=== PATIENT | male | born 1975 | race Caucasian/White ===

== ENCOUNTER 2024-02-27 09:37 | Inpatient (IN) ==
[2024-02-27] MEDS ORDERED: cefTRIAXone 2 GM ADDV.VIAL 2 GM in NS 0.9% 100 ml BAG 100 ML IV ONE (10:39)
[2024-02-27] MEDS: cefTRIAXone 2 gm/50 mL D5W 2 GM/50 ML BAG IV ONE (11:26)
[2024-02-27 11:38] LABS: ABS Basophils 0.1 10^3/uL (0.0-0.1); ABS Lymphocytes 0.8 10^3/uL (1.0-4.8); ABS Monocytes 0.5 10^3/uL (0.0-1.1); ABS Neutrophils 10.7 10^3/uL (1.5-7.6); Hematocrit 34.5 % (38-53); Hemoglobin 11.8 g/dL (13.2-16.3); Lymphocyte % 6.8 %; Mean Corpuscular Hemoglobin 30.9 pg (27-33); Mean Corpuscular Hgb Conc 34.1 g/dL (31-36); Mean Corpuscular Volume 90.6 fL (80-97); Mean Platelet Volume 9.7 fL (7.5-11.2); Platelet Count 169 10^3/uL (150-450); Red Blood Count 3.81 10^6/uL (4.06-5.63); Red Cell Distribution Width 13.9 % (12-17); White Blood Count 12.1 10^3/uL (3.6-10.2)
[2024-02-27 11:50] LABS: INR 1.14 (0.85-1.14)
[2024-02-27] MEDS: Lactated Ringers 1000 ml BAG 1,000 ML IV ONE (12:11)
[2024-02-27 12:16] LABS: ALT 44 U/L (7-52); Albumin 3.3 g/dL (3.2-5.2); Albumin/Globulin Ratio 1.1 (1-3); Alkaline Phosphatase 98 U/L (35-149); Anion Gap 10 mmol/L (2-16); Blood Urea Nitrogen 38 mg/dL (6-24); C Reactive Protein 400.79 mg/L (<8.01); CO2 Carbon Dioxide 29 mmol/L (22-32); Calcium 8.5 mg/dL (8.6-10.3); Chloride 92 mmol/L (101-111); Creatinine, Serum 2.27 mg/dL (0.67-1.17); Globulin 3.1 g/dL (2-4); Glucose 114 mg/dL (70-100); Sodium 131 mmol/L (135-145); Total Bilirubin 0.8 mg/dL (0.2-1.0); Total Protein 6.4 g/dL (6.4-8.9); eGFR CKD-EPI 34.9 (>60)
[2024-02-27 12:29] LABS: Urine Amorphous Crystals Present /HPF (Absent); Urine Appearance Extra Turbid; Urine Bacteria 1+ /HPF (Absent); Urine Bilirubin Negative (Negative); Urine Blood 3+ (Negative); Urine Glucose Negative (Negative); Urine Ketones Negative (Negative); Urine Nitrite Negative (Negative); Urine Protein 1+ (>=30 mg/dL) (Negative); Urine Red Blood Cell 3+(>10/hpf) /HPF (0-Trace); Urine Specific Gravity 1.014 (1.002-1.030); Urine Squamous Epithelial Cell Present /HPF (Absent); Urine Urobilinogen Negative (Negative); Urine White Blood Cell 2+(11-20/hpf) /HPF (0-Trace); Urine pH 5.5 (5.0-8.0)
[2024-02-27 12:30] LABS: Urine Color Yellow
[2024-02-27] MEDS ORDERED: Magnesium Hydroxide LIQ 30 ML UDC PO PRN (12:57)
[2024-02-27] MEDS ORDERED: Albuterol HFA INHALER 8 gm MDI INH PRN (12:57)
[2024-02-27] MEDS ORDERED: Calcium (OSCAL) 500 mg TAB PO PRN (12:57)
[2024-02-27] MEDS ORDERED: Polyethylene Glycol 3350 BTL 238 GM BTL PO PRN (12:57)
[2024-02-27] MEDS: fentaNYL 100 mcg/2 ml 50 MCG/ML VIAL IV SLOW PU ONE (13:30)
[2024-02-27] MEDS: Enoxaparin 60 MG/0.6 ML SYR SUBCUT SCH (14:14)
[2024-02-27] MEDS: Nystatin SUSPENSION 100,000 UNITS/ML UDC SWISH SWAL SCH (14:14)
[2024-02-27] MEDS: ceFAZolin 2 GM PREMIX 2 GM/50 ML BAG IV SCH (18:08)
[2024-02-27] MEDS: PRAVASTATIN 10 MG PO SCH (21:22)
[2024-02-27] MEDS: DULoxetine DR 60 mg CAP PO SCH (21:22)
[2024-02-27] MEDS: Nystatin TOP POWDER 15 GM BTL TOPICAL SCH (21:23)
[2024-02-28] MEDS: Lactated Ringers 1000 ml BAG 1,000 ML IV ONE (01:24)
[2024-02-28 01:53] LABS: Creatinine, Serum 2.06 mg/dL (0.67-1.17); Potassium 3.4 mmol/L (3.5-5.0); eGFR CKD-EPI 39.2 (>60)
[2024-02-28 02:32] LABS: Hematocrit 34.2 % (38-53); Hemoglobin 11.4 g/dL (13.2-16.3); Mean Corpuscular Hemoglobin 30.2 pg (27-33); Mean Corpuscular Hgb Conc 33.4 g/dL (31-36); Mean Corpuscular Volume 90.5 fL (80-97); Mean Platelet Volume 9.5 fL (7.5-11.2); Platelet Count 142 10^3/uL (150-450); Red Blood Count 3.77 10^6/uL (4.06-5.63); Red Cell Distribution Width 14.2 % (12-17); White Blood Count 12.4 10^3/uL (3.6-10.2)
[2024-02-28 04:02] LABS: ABS Monocytes 0.5 10^3/uL (0.0-1.1); ABS Neutrophils 10.8 10^3/uL (1.5-7.6); Eosinophil % 0.1 %; Lymphocyte % 8.3 %
[2024-02-28] MEDS ORDERED: Potassium Chlor 20 meq TAB.ER PO SCH (09:00)
[2024-02-28] MEDS: TERBINAFINE HCL 250 MG PO SCH (09:22)
[2024-02-28] MEDS: Potassium Chloride LIQUID 20 MEQ/15 ML LIQUID PO ONE (09:25)
[2024-02-28] MEDS: Nicotine PATCH 21 MG/24 HR PATCH TRANSDERM SCH (09:28)
[2024-02-28] MEDS: Lactated Ringers 1000 ml BAG 1,000 ML IV SCH (09:47)
[2024-02-28] MEDS: Potassium Chlor 20 meq TAB.ER PO SCH (14:53)
[2024-02-29 07:26] LABS: Hematocrit 32.6 % (38-53); Hemoglobin 11.2 g/dL (13.2-16.3); Mean Corpuscular Hemoglobin 30.8 pg (27-33); Mean Corpuscular Hgb Conc 34.2 g/dL (31-36); Mean Corpuscular Volume 89.9 fL (80-97); Mean Platelet Volume 9.8 fL (7.5-11.2); Platelet Count 147 10^3/uL (150-450); Red Blood Count 3.63 10^6/uL (4.06-5.63); Red Cell Distribution Width 14.3 % (12-17); White Blood Count 15.2 10^3/uL (3.6-10.2)
[2024-02-29 07:58] LABS: Creatinine, Serum 2.5 mg/dL (0.67-1.17); Potassium 3.4 mmol/L (3.5-5.0); eGFR CKD-EPI 31.1 (>60)
[2024-02-29 08:33] LABS: C Reactive Protein 403.42 mg/L (<8.01)
[2024-02-29 08:59] LABS: ABS Basophils 0.1 10^3/uL (0.0-0.1); ABS Eosinophils 0.1 10^3/uL (0.0-0.5); ABS Lymphocytes 1.2 10^3/uL (1.0-4.8); ABS Monocytes 0.7 10^3/uL (0.0-1.1); ABS Neutrophils 13.1 10^3/uL (1.5-7.6); Eosinophil % 0.7 %; Lymphocyte % 7.8 %
[2024-02-29] MEDS: Potassium Chlor 20 meq TAB.ER PO ONE (10:29)
[2024-02-29] MEDS ORDERED: Vancomycin per Pharmacy 1 EA NOTE FOLLOW UP SCH (12:00)
[2024-02-29] MEDS ORDERED: Vancomycin 1,000 MG in NS 0.9% 250 ml 250 ML IVPB ONE (12:00)
[2024-02-29] MEDS: Furosemide 100 mg/10 ml IV VIAL IV ONE (14:21)
[2024-02-29] MEDS: cefTRIAXone 1 gm/50 mL D5W 1 GM/50 ML BAG IV SCH (14:32)
[2024-02-29] MEDS: Vancomycin 2,000 MG in NS 0.9% 500 ml BAG 500 ML IVPB ONE (15:56)
[2024-03-01 06:41] LABS: Hematocrit 33.4 % (38-53); Hemoglobin 11.3 g/dL (13.2-16.3); Mean Corpuscular Hemoglobin 30.2 pg (27-33); Mean Corpuscular Hgb Conc 33.7 g/dL (31-36); Mean Corpuscular Volume 89.6 fL (80-97); Mean Platelet Volume 9.5 fL (7.5-11.2); Platelet Count 192 10^3/uL (150-450); Red Blood Count 3.73 10^6/uL (4.06-5.63); Red Cell Distribution Width 14.2 % (12-17); White Blood Count 21.1 10^3/uL (3.6-10.2)
[2024-03-01 07:14] LABS: C Reactive Protein 405.86 mg/L (<8.01); Calcium 7.9 mg/dL (8.6-10.3); Creatinine, Serum 2.45 mg/dL (0.67-1.17); Potassium 3.8 mmol/L (3.5-5.0); eGFR CKD-EPI 31.9 (>60)
[2024-03-01] MEDS: Vancomycin Random Level NOTE FOLLOW UP ONE (13:22)
[2024-03-01] MEDS: Vancomycin 1,500 MG in NS 0.9% 250 ml 250 ML IVPB ONE (13:43)
[2024-03-01] MEDS ORDERED: ceFAZolin VIAL 2 GM in NS 0.9% 100 ml BAG 100 ML IVPB SCH (15:30)
[2024-03-01] MEDS: ceFAZolin 2 GM PREMIX 2 GM/50 ML BAG IV SCH (16:13)
[2024-03-02] MEDS ORDERED: Vancomycin Random Level NOTE FOLLOW UP ONE (06:00)
[2024-03-02 06:43] LABS: Hematocrit 31.2 % (38-53); Hemoglobin 10.5 g/dL (13.2-16.3); Mean Corpuscular Hemoglobin 30.2 pg (27-33); Mean Corpuscular Hgb Conc 33.7 g/dL (31-36); Mean Corpuscular Volume 89.7 fL (80-97); Mean Platelet Volume 9.7 fL (7.5-11.2); Platelet Count 240 10^3/uL (150-450); Red Blood Count 3.48 10^6/uL (4.06-5.63); Red Cell Distribution Width 14.4 % (12-17)
[2024-03-02 07:01] LABS: Calcium 8.1 mg/dL (8.6-10.3); Creatinine, Serum 2.15 mg/dL (0.67-1.17); Potassium 3.5 mmol/L (3.5-5.0); eGFR CKD-EPI 37.3 (>60)
[2024-03-02 07:37] LABS: ABS Basophils 0.1 10^3/uL (0.0-0.1); ABS Eosinophils 0.3 10^3/uL (0.0-0.5); ABS Lymphocytes 1.7 10^3/uL (1.0-4.8); ABS Monocytes 1.6 10^3/uL (0.0-1.1); ABS Neutrophils 19.3 10^3/uL (1.5-7.6); ABS Nucleated RBC 0.01 10^3/ul; Eosinophil % 1.1 %; Lymphocyte % 7.3 %; RBC Morphology Normal (Normal)
[2024-03-02] MEDS: Furosemide 40 mg/4 ml IV VIAL IV ONE (10:22)
[2024-03-02] MEDS: Iodixanol (CONTRAST) 320 MG/ML 100 ML SDV IV ONE (12:13)
[2024-03-03 07:14] LABS: Hematocrit 32.3 % (38-53); Hemoglobin 10.9 g/dL (13.2-16.3); Mean Corpuscular Hemoglobin 30.5 pg (27-33); Mean Corpuscular Hgb Conc 33.9 g/dL (31-36); Mean Corpuscular Volume 89.9 fL (80-97); Mean Platelet Volume 9.1 fL (7.5-11.2); Platelet Count 281 10^3/uL (150-450); Red Blood Count 3.59 10^6/uL (4.06-5.63); Red Cell Distribution Width 14.4 % (12-17); White Blood Count 19.8 10^3/uL (3.6-10.2)
[2024-03-03 08:30] LABS: ABS Eosinophils 0.3 10^3/uL (0.0-0.5); ABS Lymphocytes 1.8 10^3/uL (1.0-4.8); ABS Monocytes 1.8 10^3/uL (0.0-1.1); ABS Neutrophils 15.9 10^3/uL (1.5-7.6); ABS Nucleated RBC 0.01 10^3/ul; Eosinophil % 1.3 %; RBC Morphology Normal (Normal)
[2024-03-03 09:56] VITALS: BP 109/59
[2024-03-03 10:11] LABS: Calcium 8.1 mg/dL (8.6-10.3); Creatinine, Serum 2.02 mg/dL (0.67-1.17); Potassium 3.7 mmol/L (3.5-5.0); eGFR CKD-EPI 40.2 (>60)
[2024-03-03] MEDS: Influenza Vaccine *TRI* 2024-25* 0.5 ML SYRINGE IM ONE (12:10)
[2024-03-03] MEDS: COVID VAC 24-25 (12+) (Moderna) Syringe 0.5 mL IM ONE (12:12)
== END 2024-03-03 13:55 | disposition home or self-care (01) | DRG 872 ==
LOC: EDHOLD 09:37 → ED 09:37 → SUATTDRO 12:54 → MED 15:24
PROVIDERS: ADMIT Student in an Organized Health Care Education/Training Program; ATTEND Hospitalist

== ENCOUNTER 2024-03-08 14:23 | Inpatient (IN) ==
[2024-03-08] MEDS: Ondansetron 4 mg VIAL 2 MG/ML 2 ml VIAL IV ONE (18:15)
[2024-03-08] MEDS: NS 0.9% 1000 ml BAG 1,000 ML IV ONE (18:17)
[2024-03-08 18:19] LABS: ABS Basophils 0.1 10^3/uL (0.0-0.1); ABS Eosinophils 0.1 10^3/uL (0.0-0.5); ABS Monocytes 0.8 10^3/uL (0.0-1.1); ABS Neutrophils 8.6 10^3/uL (1.5-7.6); Eosinophil % 1.2 %; Hematocrit 30.7 % (38-53); Hemoglobin 10.1 g/dL (13.2-16.3); Mean Corpuscular Hemoglobin 30.2 pg (27-33); Mean Corpuscular Hgb Conc 32.8 g/dL (31-36); Mean Corpuscular Volume 91.9 fL (80-97); Mean Platelet Volume 8.4 fL (7.5-11.2); Platelet Count 447 10^3/uL (150-450); Red Blood Count 3.34 10^6/uL (4.06-5.63); Red Cell Distribution Width 14.4 % (12-17); White Blood Count 11.6 10^3/uL (3.6-10.2)
[2024-03-08] MEDS: Vancomycin 2,000 MG in NS 0.9% 500 ml BAG 500 ML IVPB ONE (18:42)
[2024-03-08 19:07] LABS: ALT 7 U/L (7-52); Albumin 3.2 g/dL (3.2-5.2); Albumin/Globulin Ratio 0.8 (1-3); Alkaline Phosphatase 118 U/L (35-149); Anion Gap 7 mmol/L (2-16); Blood Urea Nitrogen 21 mg/dL (6-24); CO2 Carbon Dioxide 35 mmol/L (22-32); Chloride 95 mmol/L (101-111); Creatinine, Serum 1.54 mg/dL (0.67-1.17); Globulin 4.2 g/dL (2-4); Glucose 97 mg/dL (70-100); Sodium 137 mmol/L (135-145); Total Bilirubin 0.6 mg/dL (0.2-1.0); Total Protein 7.4 g/dL (6.4-8.9); eGFR CKD-EPI 55.6 (>60)
[2024-03-08] MEDS: Acetaminophen IV 1 GM/100ML 1,000 MG/100 ML BAG IV ONE (21:08)
[2024-03-08] MEDS ORDERED: Dextrose 50% Syringe 50 ml 25 GM/50 ML SYRINGE IV PUSH PRN (22:35)
[2024-03-08] MEDS ORDERED: Nicotine GUM 4MG FRUIT FLAVOR PO PRN (22:35)
[2024-03-08] MEDS ORDERED: Nystatin SUSPENSION 100,000 UNITS/ML UDC PO PRN (22:35)
[2024-03-08] MEDS: Enoxaparin 40 MG/0.4 ML SYR SUBCUT SCH (22:39)
[2024-03-08] MEDS ORDERED: Vancomycin per Pharmacy 1 EA NOTE FOLLOW UP SCH (23:45)
[2024-03-09] MEDS: Cefepime 2 GM in Dextrose 2 GM/50 ML BAG IV SCH (00:03)
[2024-03-09] MEDS: HYDROmorphone 1 MG/1 ML SYRINGE IV SLOW PU PRN (02:15)
[2024-03-09] MEDS: Vancomycin 1,500 MG in NS 0.9% 250 ml 250 ML IVPB SCH (05:32)
[2024-03-09 05:38] LABS: Hematocrit 28.6 % (38-53); Hemoglobin 9.3 g/dL (13.2-16.3); Mean Corpuscular Hemoglobin 29.9 pg (27-33); Mean Corpuscular Hgb Conc 32.6 g/dL (31-36); Mean Corpuscular Volume 91.7 fL (80-97); Mean Platelet Volume 7.7 fL (7.5-11.2); Platelet Count 397 10^3/uL (150-450); Red Blood Count 3.12 10^6/uL (4.06-5.63); Red Cell Distribution Width 14.6 % (12-17); White Blood Count 8.4 10^3/uL (3.6-10.2)
[2024-03-09 06:28] LABS: Calcium 8.3 mg/dL (8.6-10.3); Creatinine, Serum 1.39 mg/dL (0.67-1.17); Potassium 4.2 mmol/L (3.5-5.0); eGFR CKD-EPI 62.9 (>60)
[2024-03-09] MEDS: Senna TAB 8.6 mg TAB PO SCH (07:58)
[2024-03-09] MEDS: DULoxetine DR 60 mg CAP PO SCH (09:08)
[2024-03-09] MEDS: Nystatin TOP POWDER 15 GM BTL TOPICAL SCH (11:04)
[2024-03-09 11:14] LABS: Ferritin 834.3 ng/mL (24-336)
[2024-03-09] MEDS: cefTRIAXone 2 gm/50 mL D5W 2 GM/50 ML BAG IV SCH (15:12)
[2024-03-09] MEDS ORDERED: Cefepime 2 GM in Dextrose 2 GM/50 ML BAG IV SCH (16:00)
[2024-03-09] MEDS ORDERED: Vancomycin 1,500 MG in NS 0.9% 250 ml 250 ML IVPB SCH (18:00)
[2024-03-09] MEDS: CMCS:Pravastatin 10 mg TAB (NF) PO SCH (19:55)
[2024-03-10 06:21] LABS: Hematocrit 29.1 % (38-53); Hemoglobin 9.6 g/dL (13.2-16.3); Mean Corpuscular Hgb Conc 32.9 g/dL (31-36); Mean Platelet Volume 7.9 fL (7.5-11.2); Platelet Count 440 10^3/uL (150-450); Red Blood Count 3.19 10^6/uL (4.06-5.63); Red Cell Distribution Width 14.2 % (12-17); White Blood Count 9.5 10^3/uL (3.6-10.2)
[2024-03-10 06:51] LABS: Calcium 8.7 mg/dL (8.6-10.3); Creatinine, Serum 1.2 mg/dL (0.67-1.17); eGFR CKD-EPI 75.1 (>60)
[2024-03-10] MEDS: Vancomycin Random Level NOTE FOLLOW UP ONE (07:23)
[2024-03-11 06:57] LABS: Hematocrit 28.9 % (38-53); Hemoglobin 9.8 g/dL (13.2-16.3); Mean Corpuscular Hemoglobin 30.8 pg (27-33); Mean Corpuscular Volume 90.8 fL (80-97); Mean Platelet Volume 7.9 fL (7.5-11.2); Platelet Count 435 10^3/uL (150-450); Red Blood Count 3.18 10^6/uL (4.06-5.63); Red Cell Distribution Width 14.1 % (12-17); White Blood Count 9.3 10^3/uL (3.6-10.2)
[2024-03-11 07:16] LABS: Calcium 8.8 mg/dL (8.6-10.3); Creatinine, Serum 1.12 mg/dL (0.67-1.17); Magnesium 1.9 mg/dL (1.9-2.7); Potassium 4.1 mmol/L (3.5-5.0); eGFR CKD-EPI 81.5 (>60)
[2024-03-12 09:35] VITALS: BP 128/67
== END 2024-03-12 12:25 | DRG 603 ==
LOC: ED 14:23 → EDHOLD 22:20 → SUATTDRO 22:20 → MED 03-09 09:05
PROVIDERS: ADMIT Student in an Organized Health Care Education/Training Program; ATTEND Hospitalist